=== PATIENT | female | born 1935 | race Two or more races ===

== ENCOUNTER 2018-07-20 10:33 | Outpatient (CLI) | payer OTHER ==
[~2018-07-20 10:33] MED LIST: LOSARTAN-HCTZ1 EAC1 PO
== END 2018-07-20 15:00 | disposition home or self-care (01) ==
LOC: MAMO-SONO 10:33
DX: Z12.31 Encounter for screening mammogram for malignant neoplasm of breast (principal); Z87.898 Personal history of other specified conditions; N64.89 Other specified disorders of breast; R07.89 Other chest pain

== ENCOUNTER 2018-07-20 13:19 | Outpatient (CLI) | payer OTHER | END 2018-07-20 14:29 | disposition home or self-care (01) | LOC: NUCLEAR 13:19 | DX: M85.9 Disorder of bone density and structure, unspecified (principal); M81.0 Age-related osteoporosis without current pathological fracture ==

== ENCOUNTER 2019-05-27 09:04 | Outpatient (CLI) | payer OTHER | END 2019-05-27 09:06 | disposition home or self-care (01) | LOC: RAD 09:04 | DX: D68.8 Other specified coagulation defects (principal); H25.89 Other age-related cataract ==

== ENCOUNTER 2020-11-28 12:42 | Outpatient (CLI) | payer OTHER | END 2020-11-28 12:57 | disposition home or self-care (01) | LOC: NUCLEAR 12:42 | DX: M81.0 Age-related osteoporosis without current pathological fracture (principal) ==

== ENCOUNTER 2021-01-03 16:05 | Emergency (ER) | payer OTHER ==
[~2021-01-03] VITALS: Ht 162.6 cm; Wt 46.7 kg
[2021-01-03] MEDS ORDERED: CARVEDILOL6.25 M1 PO (16:36)
[2021-01-03] MEDS ORDERED: ALENDRONATE SOD70 MG PO (16:36)
[2021-01-03] MEDS ORDERED: ALLOPURINOL100 MG PO (16:36)
[2021-01-03] MEDS ORDERED: CLONAZEPAM1 MG PO (16:36)
[2021-01-03] MEDS ORDERED: HYDRALAZINE HCL50 MG PO (16:36)
== END 2021-01-04 04:49 | disposition designated cancer center or children's hospital (05) ==
LOC: ER 16:05
DX: K45.0 Other specified abdominal hernia with obstruction, without gangrene (principal); K40.30 Unilateral inguinal hernia, with obstruction, without gangrene, not specified as recurrent; K56.699 Other intestinal obstruction unspecified as to partial versus complete obstruction; K56.41 Fecal impaction; N28.1 Cyst of kidney, acquired; M25.551 Pain in right hip; R10.31 Right lower quadrant pain; Z03.818 Encounter for observation for suspected exposure to other biological agents ruled out

== ENCOUNTER 2021-07-26 12:02 | Emergency (ER) | payer OTHER ==
[~2021-07-26] VITALS: Ht 152.4 cm; Wt 40.8 kg
[~2021-07-26 12:02] MED LIST changes: +ALENDRONATE SOD70 MG PO; +ALLOPURINOL100 MG PO; +CARVEDILOL6.25 M1 PO; +CLONAZEPAM1 MG PO; +HYDRALAZINE HCL50 MG PO
[2021-07-26] MEDS ORDERED: AVAPRO300 MG PO (12:48)
[2021-07-26] MEDS ORDERED: ALDACTONE25 MG PO (12:49)
== END 2021-07-26 15:36 | disposition home or self-care (01) ==
LOC: ER 12:02
DX: K29.60 Other gastritis without bleeding (principal); I10 Essential (primary) hypertension

== ENCOUNTER 2021-08-14 08:50 | Outpatient (CLI) | payer OTHER ==
[~2021-08-14 08:50] MED LIST changes: +ALDACTONE25 MG PO; +AVAPRO300 MG PO
== END 2021-08-14 08:57 | disposition home or self-care (01) ==
LOC: TOM 08:50
PROVIDERS: ATTEND General Practice
DX: R10.9 Unspecified abdominal pain (principal); R10.2 Pelvic and perineal pain

== ENCOUNTER 2021-09-02 07:24 | Outpatient (CLI) | payer OTHER | END 2021-09-02 07:26 | disposition home or self-care (01) | LOC: SONOGRAMA 07:24 | PROVIDERS: ATTEND General Practice | DX: R10.11 Right upper quadrant pain (principal) ==

== ENCOUNTER 2021-10-10 07:09 | Outpatient (CLI) | payer OTHER | END 2021-10-10 07:17 | disposition home or self-care (01) | LOC: MRI 07:09 | PROVIDERS: ATTEND Internal Medicine Gastroenterology | DX: R68.89 Other general symptoms and signs (principal); K80.80 Other cholelithiasis without obstruction | CPT/HCPCS: 74181 ==

== ENCOUNTER 2022-03-31 17:25 | Emergency (ER) | payer OTHER ==
[~2022-03-31] VITALS: Ht 152.4 cm; Wt 39.9 kg
[2022-03-31] MEDS ORDERED: FUROSEMIDE20 MG PO (18:16)
== END 2022-03-31 20:47 | disposition home or self-care (01) ==
LOC: ER 17:25
DX: R10.9 Unspecified abdominal pain (principal); I10 Essential (primary) hypertension

== ENCOUNTER 2022-04-15 07:20 | Outpatient (CLI) | payer OTHER ==
[~2022-04-15 07:20] MED LIST changes: +FUROSEMIDE20 MG PO
== END 2022-04-15 07:21 | disposition home or self-care (01) ==
LOC: NUCLEAR 07:20
PROVIDERS: ATTEND Internal Medicine Cardiovascular Disease
DX: I25.9 Chronic ischemic heart disease, unspecified (principal)
CPT/HCPCS: 78452; 93017; A9500

== ENCOUNTER 2022-05-04 10:22 | Emergency (ER) | payer OTHER ==
[~2022-05-04] VITALS: Ht 157.5 cm; Wt 39.9 kg
== END 2022-05-04 13:53 | disposition home or self-care (01) ==
LOC: ER 10:22
DX: I10 Essential (primary) hypertension (principal)

== ENCOUNTER 2022-05-19 07:24 | Inpatient (IN) | payer OTHER ==
[~2022-05-19] VITALS: Ht 121.9 cm; Wt 38.6 kg
[2022-05-19] MEDS ORDERED: CLONAZEPAM1 MG PO (07:47)
--- NOTE | 2022-05-19 07:47 | NUR ---
PACIENTE ALERTA Y ORIENTADA X3 EN COMPANIA DE FAMILIAR QUIEN REFIERE QUE VIENE POR PARTE DEL DOCTOR.ADALBERTO ANTONIO PARA ADMISION DEBIDO A QUE SE LE REALIZARA UN PROCEDIMIENTO CON EL DR. SILVIA MENA
--- NOTE | 2022-05-19 08:35 | NUR ---
SE ORIENTA PTE SOBRE TX A SEGUIR, EL CUAL REFIERE ENTENDER. SE COLECTAN MUESTRAS Y SE CANALIZA PTE UTILIZANDO MEDIDAS ASEPTICAS. SE HACE ENTREGA DE ENVASE PARA MUESTRA DE UA PEND. SE REALIZA EKG Y SE LE PRESENTA A DR. MAGDALENO
[2022-05-23] MEDS ORDERED: FUROSEMIDE20 MG (08:08)
== END 2022-05-23 22:59 | disposition home or self-care (01) | DRG 446 ==
LOC: ER 07:24 → SURG 17:31
PROVIDERS: Internal Medicine Gastroenterology; ADMIT Internal Medicine; ATTEND Internal Medicine
PROC: 0F798DZ Dilation of Common Bile Duct with Intraluminal Device, Via Natural or Artificial Opening Endoscopic (ICD-10-PCS; principal; 2022-05-21 07:30)
DX: K80.50 Calculus of bile duct without cholangitis or cholecystitis without obstruction (principal); K29.60 Other gastritis without bleeding; I10 Essential (primary) hypertension; I25.10 Atherosclerotic heart disease of native coronary artery without angina pectoris; Z20.822 Contact with and (suspected) exposure to COVID-19

== ENCOUNTER 2023-05-20 18:28 | Emergency (ER) | payer OTHER ==
[~2023-05-20] VITALS: Ht 152.4 cm; Wt 38.1 kg
[~2023-05-20 18:28] MED LIST changes: +FUROSEMIDE20 MG; +LOSARTAN POTASS50 MG PO
[2023-05-20] MEDS ORDERED: NIFEDIPINE ER30 M1 PO (18:47)
[2023-05-20 20:18] LABS: HEMOGLOBIN 14.1 g/dL (12.0-15.00); MEAN CORPUSCULAR HEMOGLOBIN 29.5 pg (27.00-32.0); MEAN CORPUSCULAR HGB CONC 33.5 g/dl (32.0-36.0); PLATELET COUNT 184 K/uL (150-450); RED BLOOD COUNT 4.77 M/uL (4.00-6.00); RED CELL DISTRIBUTION WIDTH 14.2 % (11.5-14.5)
[2023-05-20 20:30] LABS: PH,URINE 7.5 (5.0-8.0); URINE APPEARANCE Clear; URINE BILIRRUBIN Negative (NEGATIVE); URINE BLOOD Trace; URINE COLOR Yellow; URINE GLUCOSE Negative (NEGATIVE); URINE LEUKOCYTE Negative; URINE NITRATE Negative; URINE UROBILINOGEN 0.2 E.U./dl
[2023-05-20 20:34] LABS: URINE BACTERIA 49.1 uL (0.0-1933); URINE EPITHELIAL CELLS 5.8 uL (0.0-38.8); URINE RBC 33.1 uL (0.0-20.8); URINE WBC 7.2 uL (0.0-23.2)
[2023-05-20 20:35] LABS: CALCIUM 9.9 mg/dL (8.5-10.1); CREATININE SERUM 1.44 mg/dL (0.55-1.02); GFR 34.35; POTASSIUM 3.92 mEq/L (3.5-5.1)
[2023-05-20 20:47] LABS: URINE PROTEIN 100 (NEGATIVE)
== END 2023-05-21 03:29 ==
LOC: ER 18:28
PROVIDERS: Nurse Practitioner Family
DX: I10 Essential (primary) hypertension (principal); K80.20 Calculus of gallbladder without cholecystitis without obstruction
CPT/HCPCS: 36415; 93005; 96365; 99284; J1940; J3490

== ENCOUNTER 2024-01-22 18:10 | Emergency (ER) | payer OTHER ==
[~2024-01-22] VITALS: Ht 162.6 cm; Wt 54.4 kg
[~2024-01-22 18:10] MED LIST changes: +NIFEDIPINE ER30 M1 PO
[2024-01-22 19:45] LABS: HEMATOCRIT 34.8 % (36.0-45.00); HEMOGLOBIN 11.4 g/dL (12.0-15.00); MEAN CELL VOLUME 88.3 fL (80.00-100.00); MEAN CORPUSCULAR HEMOGLOBIN 29.1 pg (27.00-32.0); MEAN CORPUSCULAR HGB CONC 32.9 g/dl (32.0-36.0); PLATELET COUNT 169 K/uL (150-450); RED BLOOD COUNT 3.94 M/uL (4.00-6.00); RED CELL DISTRIBUTION WIDTH 14.2 % (11.5-14.5)
[2024-01-22 20:07] LABS: CALCIUM 9.2 mg/dL (8.5-10.1); CREATININE SERUM 1.8 mg/dL (0.55-1.02); GFR 26.49; POTASSIUM 4.56 mEq/L (3.5-5.1)
== END 2024-01-22 20:22 | disposition home or self-care (01) ==
LOC: ER 18:11
PROVIDERS: General Practice
DX: R53.81 Other malaise (principal); R19.5 Other fecal abnormalities

== ENCOUNTER 2024-04-02 08:54 | Emergency (ER) | payer OTHER ==
[~2024-04-02] VITALS: Ht 157.5 cm; Wt 45.4 kg
[2024-04-02] MEDS ORDERED: HYDRALAZINE HCL10 MG PO (09:17)
[2024-04-02] MEDS ORDERED: ENALAPRILAT DIHYDRATE 1.25 MG/ML VIAL IV STA (09:29)
[2024-04-02] MEDS ORDERED: FAMOTIDINE/PF 20 MG/2 ML VIAL IV PUSH STA (09:29)
[2024-04-02 10:13] LABS: HEMATOCRIT 40.1 % (36.0-45.00); HEMOGLOBIN 13.1 g/dL (12.0-15.00); MEAN CELL VOLUME 88.7 fL (80.00-100.00); MEAN CORPUSCULAR HEMOGLOBIN 29.1 pg (27.00-32.0); MEAN CORPUSCULAR HGB CONC 32.8 g/dl (32.0-36.0); PLATELET COUNT 189 K/uL (150-450); RED BLOOD COUNT 4.52 M/uL (4.00-6.00); RED CELL DISTRIBUTION WIDTH 14.6 % (11.5-14.5)
[2024-04-02 10:34] LABS: ALBUMIN 3.7 gm/dL (3.4-5.0); BILIRUBIN TOTAL 0.53 mg/dL (0.3-1.2); CREATININE SERUM 1.94 mg/dL (0.55-1.02); GFR 24.3; GLOBULINA 3.5 G/DL (2.4-3.5); POTASSIUM 4.71 mEq/L (3.5-5.1); TOTAL PROTEIN 7.2 gm/dL (6.4-8.2)
[2024-04-02 10:35] LABS: URINE APPEARANCE Clear; URINE BILIRRUBIN Negative (NEGATIVE); URINE BLOOD Negative; URINE COLOR Yellow; URINE GLUCOSE Negative (NEGATIVE); URINE KETONE Negative (NEGATIVE); URINE LEUKOCYTE Trace; URINE NITRATE Negative; URINE PROTEIN Trace (NEGATIVE); URINE UROBILINOGEN 0.2 E.U./dl
[2024-04-02 10:36] LABS: URINE BACTERIA 230.5 uL (0.0-1933); URINE EPITHELIAL CELLS 15.4 uL (0.0-38.8); URINE WBC 9.2 uL (0.0-23.2)
== END 2024-04-02 11:40 | disposition home or self-care (01) ==
LOC: ER 08:56
PROVIDERS: General Practice
DX: M54.9 Dorsalgia, unspecified (principal); K29.70 Gastritis, unspecified, without bleeding
CPT/HCPCS: 36415; 96365; 99282; J3490